=== PATIENT | female | born 1975 | race Native Hawaiian/Other Pacific Islander ===

== ENCOUNTER 2019-05-24 04:49 | Observation (INO) | payer OTHER ==
[~2019-05-24] VITALS: Ht 165.1 cm; Wt 60.9 kg
[2019-05-24 05:01] VITALS: BP 149/87; TEMP 101.5
[2019-05-24 05:21] LABS: PLATELET COUNT 293 K/uL (152-353)
[2019-05-24 05:34] LABS: POTASSIUM 3.2 mmol/L (3.6-5.2)
[2019-05-24 12:00] VITALS: BP 122/85; TEMP 102.5
[2019-05-24 15:03] VITALS: BP 120/74; TEMP 97.7; Ht 165.1 cm; Wt 60.9 kg
[2019-05-24 17:22] VITALS: BP 119/74; TEMP 98.9
[2019-05-24 19:38] LABS: PLATELET COUNT 293 K/uL (152-353)
[2019-05-24 19:58] LABS: POTASSIUM 2.7 mmol/L (3.6-5.2)
[2019-05-24 20:00] VITALS: BP 121/81; TEMP 99.1
[2019-05-24 23:57] VITALS: BP 108/69; TEMP 98.7
[2019-05-25 04:00] VITALS: BP 123/80; TEMP 99.1
[2019-05-25 05:06] LABS: PLATELET COUNT 254 K/uL (152-353)
[2019-05-25 05:22] LABS: POTASSIUM 3.7 mmol/L (3.6-5.2)
[2019-05-25 08:00] VITALS: BP 127/82; TEMP 98.1
--- NOTE | 2019-05-25 11:19 | NUR ---
1030 DISCHARGE INSTRUCTIONS GIVEN TO PT. PT VERBALZIED UNDESTADNING. PT RE'CD MEDS FILLED HERE AT [facility]. ABX DELEIVERED TO PT VIA PHARM STAFF PRIOR TO DISCHARGE. 1040 PT LEFT WITH FAMILY. NO ACUTE DISTRESS NOTED VIA WC.
== END 2019-05-25 10:38 | disposition home or self-care (01) ==
LOC: ED 04:49 → MED/SURG 06:45
PROVIDERS: Family Medicine; ADMIT Emergency Medicine Emergency Medical Services
DX: N10 Acute pyelonephritis (principal); B96.20 Unspecified Escherichia coli [E. coli] as the cause of diseases classified elsewhere; N13.39 Other hydronephrosis; R51 Headache; D63.8 Anemia in other chronic diseases classified elsewhere; R11.2 Nausea with vomiting, unspecified; E87.6 Hypokalemia; Z79.899 Other long term (current) drug therapy
CPT/HCPCS: 36415; 80053; 80307; 81000; 85027; 86318; 87077; 87086; 87088; 87186; 87502; 87651; 93005; 96360; 96365; 96366; 96367; 96375; 99220; 99284; G0378; J0744; J1200; J1885; J2175; J2405; J2550